=== PATIENT | male | born 1960 | race Caucasian/White ===

== ENCOUNTER → 2017-09-22 06:53 | Outpatient (CLI) | payer OTHER, SELFPAY ==
--- NOTE | 2017-09-22 10:05 | STRESSREP ---
Stress Test Report Date: 09/22/2017 Procedure: Exercise tolerance test/imaging study Indications: Chest pain Consent: Per the patient Procedure: The patient exercised on a Titus protocol for 4 minutes completing stage I and 1 minute of stage II achieving a peak heart rate of 137 bpm (85% predicted maximal heart rate) with a peak blood pressure 192/100 mmHg and a peak MET capacity of approximately 5-6 METs. The baseline ECG demonstrated normal sinus rhythm. The peak exercise ECG demonstrated somatic/motion artifact with no obvious ECG changes. There was a rare PVC during exercise and recovery. The functional capacity was considered decreased. The patient had no complaint of chest discomfort during exercise or recovery. The examination was discontinued secondary to dyspnea and fatigue. Impression: 1. Technically adequate (percent predicted maximal heart rate greater than 85%) exercise tolerance test 2. Peak exercise ECG with somatic/motion artifact with no obvious ECG changes 3. Rare PVC during exercise and recovery 4. Nuclear images pending Myocardial perfusion imaging study: Technique: The patient was injected with 14.8 mCi of technetium 99m Cardiolite and subsequently rest SPECT Cardiolite nuclear imaging was obtained in the horizontal long, vertical long, and short axis views. The patient exercised on a Titus protocol for 4 minutes completing stage I and 1 minute of stage II achieving a peak heart rate of 137 bpm (85% predicted maximal heart rate) with a peak blood pressure 192/100 mmHg and a peak MET capacity of approximately 5-6 METs. The patient was injected with 44.5 mCi of technetium 99m Cardiolite and subsequently stress SPECT Cardiolite nuclear imaging was obtained in the horizontal long, vertical long, and short axis views. A gated Cardiolite study at peak stress was obtained. Interpretation: Rest and stress SPECT cardiac nuclear imaging status post realignment, normalization, and attenuation correction, demonstrates a small area of subtle diminished tracer uptake near the apical segments without significant change between rest and stress. There is end systolic thickening and brightening. The gated Cardiolite study demonstrates myocardial thickening and inward wall motion. The reported LVEF is 73%. Impression: 1. Rest and stress SPECT cardio light nuclear imaging demonstrates myocardial perfusion changes appearing compatible with physiologic apical thinning with no myocardial perfusion changes consider diagnostic for associated stress-induced myocardial ischemia or previous myocardial injury/infarction. 2. The gated Cardiolite study reports an LVEF of 73%. This note was generated with ITeam software. Every effort was made to ensure accuracy, however, computerized supplier quality engineer mistakes may persist.
--- NOTE | 2017-09-22 10:10 | STRESSREP_ITS ---
Stress Test Report Date: 09/22/2017 Procedure: Exercise tolerance test/imaging study Indications: Chest pain Consent: Per the patient Procedure: The patient exercised on a Titus protocol for 4 minutes completing stage I and 1 minute of stage II achieving a peak heart rate of 137 bpm (85% predicted maximal heart rate) with a peak blood pressure 192/100 mmHg and a peak MET capacity of approximately 5-6 METs. The baseline ECG demonstrated normal sinus rhythm. The peak exercise ECG demonstrated somatic/motion artifact with no obvious ECG changes. There was a rare PVC during exercise and recovery. The functional capacity was considered decreased. The patient had no complaint of chest discomfort during exercise or recovery. The examination was discontinued secondary to dyspnea and fatigue. Impression: 1. Technically adequate (percent predicted maximal heart rate greater than 85% ) exercise tolerance test 2. Peak exercise ECG with somatic/motion artifact with no obvious ECG changes 3. Rare PVC during exercise and recovery 4. Nuclear images pending Myocardial perfusion imaging study: Technique: The patient was injected with 14.8 mCi of technetium 99m Cardiolite and subsequently rest SPECT Cardiolite nuclear imaging was obtained in the horizontal long, vertical long, and short axis views. The patient exercised on a Titus protocol for 4 minutes completing stage I and 1 minute of stage II achieving a peak heart rate of 137 bpm (85% predicted maximal heart rate) with a peak blood pressure 192/100 mmHg and a peak MET capacity of approximately 5-6 METs. The patient was injected with 44.5 mCi of technetium 99m Cardiolite and subsequently stress SPECT Cardiolite nuclear imaging was obtained in the horizontal long, vertical long, and short axis views. A gated Cardiolite study at peak stress was obtained. Interpretation: Rest and stress SPECT cardiac nuclear imaging status post realignment, normalization, and attenuation correction, demonstrates a small area of subtle diminished tracer uptake near the apical segments without significant change between rest and stress. There is end systolic thickening and brightening. The gated Cardiolite study demonstrates myocardial thickening and inward wall motion. The reported LVEF is 73%. Impression: 1. Rest and stress SPECT cardio light nuclear imaging demonstrates myocardial perfusion changes appearing compatible with physiologic apical thinning with no myocardial perfusion changes consider diagnostic for associated stress-induced myocardial ischemia or previous myocardial injury/infarction. 2. The gated Cardiolite study reports an LVEF of 73%. This note was generated with VideoLens software. Every effort was made to ensure accuracy, however, computerized drying room supervisor mistakes may persist.
== END ==
PROVIDERS: Family Provider Family Medicine; PCP Family Medicine; Visit Provider Family Medicine
DX: R07.9 Chest pain, unspecified (principal)
CPT/HCPCS: 78452; 93017; A9500; A4216

== ENCOUNTER 2021-05-30 19:41 | Emergency (ER) | payer OTHER, SELFPAY ==
[2021-05-30] VITALS (9 sets, daily range): BP systolic 128–191; BP diastolic 78–124; PULSE 93–108; RESP 14–20; TEMP 36.8; O2SAT 93–98; BMI 38.8
--- NOTE | 2021-05-30 21:38 | EDS_ITS ---
HPI History of Present Illness Chief Complaint: Foreign Body Informant: patient Narrative Narrative: 61-year-old male presenting to the emergency department with chief complaint of chicken stuck in his esophagus. Patient states he has had this before but was able to dislodge it. He was eating the chicken and around 1900 hrs. and states that because of his dentures tried to swallow too big of a piece. He has never had endoscopy before. He is not willing to try swallowing Coke. [facility] Medical History Anxiety High cholesterol Hypertension Hypothyroidism Home Medications pantoprazole [Protonix] 40 mg PO DAILY #30 tab 05/30/21 [Rx Last Taken Unknown] Allergy/AdvReac Type Severity Reaction Status Date / Time meperidine [From Demerol] Allergy Nausea/Vom/ Verified 05/30/21 19:42 Diarrhea Social History (Updated 05/30/21 @ 21:[address] Arya Wilson DO) Smoking Status: Former smoker substance use type: does not use ROS ROS ED Constitutional Constitutional ED: Denies chills or weight loss Eyes Eyes: Denies change in vision or diplopia ENT ENT ED: Denies ear pain, rhinorrhea or sore throat Cardiovascular Cardiovascular: Denies chest pain, orthopnea, palpitations or racing heartbeat Respiratory/Chest Respiratory/Chest: Denies cough, dyspnea or orthopnea Gastrointestinal Gastrointestinal: Reports other Details: See history of present illness ; Denies abdominal pain, diarrhea, nausea or vomiting Genitourinary Genitourinary ED: Denies dysuria, hematuria or urinary frequency Musculoskeletal Musculoskeletal: Denies arthralgias or myalgias Integumentary Denies abscess or rash Neurologic Neurologic: Denies headache(s) or weakness Psychiatric Psychiatric: Denies anxiety, depression, suicidal ideation or suicidal thoughts Endocrine Endocrinology: Denies polydipsia, polyphagia or polyuria Allergic/Immunologic Allergic/Immunologic ED: Denies mouth swelling, tongue swelling or urticaria EXAM Physical Exam Narrative Exam Narrative: Patient sitting on the bed. He occasionally needs to spit his secretions Const Vital Signs: 05/30/21 19:43 05/30/21 20:00 05/30/21 22:13 Temperature 98.2 F Temperature Source Temporal Pulse Rate 106 H 103 H Pulse Rate [1 (Initial Baseline)] Pulse Rate [2] Pulse Rate [3] Respiratory Rate 14 16 Respiratory Rate [1 (Initial Baseline)] Respiratory Rate [2] Respiratory Rate [3] Respiratory Effort Normal Respiratory Pattern Normal Blood Pressure 191/96 H 163/98 H Blood Pressure [1 (Initial Baseline)] Blood Pressure [2] Blood Pressure [3] Blood Pressure Mean 127 119 Pulse Ox 96 97 Oxygen Delivery Method Room Air Room Air Oxygen Flow Rate (L/min) 05/30/21 22:19 05/30/21 22:20 Temperature Temperature Source Pulse Rate 106 H Pulse Rate [1 (Initial Baseline)] 105 H Pulse Rate [2] 93 Pulse Rate [3] 102 H Respiratory Rate 15 Respiratory Rate [1 (Initial Baseline)] 18 Respiratory Rate [2] 14 Respiratory Rate [3] 17 Respiratory Effort Respiratory Pattern Blood Pressure 158/99 H Blood Pressure [1 (Initial Baseline)] 172/98 H Blood Pressure [2] 128/81 H Blood Pressure [3] 146/84 H Blood Pressure Mean Pulse Ox 98 Oxygen Delivery Method Room Air Oxygen Flow Rate (L/min) 98 Positive well nourished and well developed General Appearance ED: well developed HEENT Reports normocephalic, head/scalp atraumatic and moist mucous membranes Eyes PERRL and EOMs intact bilaterally Neck no lymphadenopathy, supple and no JVD Resp normal respiratory effort and clear to auscultation bilaterally Cardio regular rate, regular rhythm and no murmurs GI normal to inspection, nondistended, normoactive bowel sounds and non-tender Palpation: soft Back/Spine no CVA tenderness and normal ROM Extremity normal to inspection General Extremety ED: Negative for edema General Extremity: Negative for edema Neuro oriented x3 and CN's II-XII intact bilaterally Sensorium / Orientation: alert Motor Exam: strength 5/5 throughout Psych mental status grossly normal Mood & Affect: Negative for depressed or tearful Skin no rashes or lesions noted and no wounds MDM MDM MDM Narrative Medical decision making narrative: Unable to swallow water will not try to swallow Coke. I spoke with on-call surgeon Dr. Ortiz because we have no GI coverage tonight. He will be in to evaluate the patient. After evaluation the plan is to do endoscopy here in the emergency department. I will be providing sedation. After discussing sedation with the patient we are going to proceed with the use of propofol. Patient is provided informed consent for this. Patient received 100 mg bolus followed by 50 mg boluses to achieve adequate sedation. A total of 250 mg was used to keep the patient sedated and comfortable during the exam. Total sedation time of 9 minutes Patient did not suffer from any hypoxia hypotension or apnea. He was allowed to recover without incident. Plan is to discharge the patient home. He will follow up with Dr. Ortiz to plan a second endoscopy for biopsies. In the interim we are going to place him on Protonix. Discharge Plan Triage Chief Complaint: Foreign Body ED Provider: Arya Wilson Dx/Rx/DC Orders Clinical Impression: Esophageal obstruction due to food impaction Instructions: ED Esophageal Foreign Body, Resolved Prescriptions: New pantoprazole [Protonix] 40 mg tablet,delayed release (DR/EC) 40 mg PO DAILY Qty: 30 RF: 0 Primary Care Provider: Ignacio Walker Referrals: Kolton Ortiz MD [STAFF PHYSICIAN] - As soon as possible (call to arrange follow up) Ignacio Walker MD [Primary Care Provider] - Disposition Disposition: Home, Self Care
--- NOTE | 2021-05-30 21:54 | CON.PCM.SX_ITS ---
Assessment & Plan Assessment/Plan (1) Esophageal obstruction due to food impaction: PLAN: This is a 61-year-old edentulous male with impacted chicken in his esophagus. Not able to tolerate liquids at this point but otherwise in no acute distress. We will plan for bedside upper endoscopy to remove food impaction. Patient and emergency medicine both advised in this plan. If scope is unremarkable and patient is able to tolerate liquids after the scope, he could be eligible for dismissal from the ER. HPI Consult Data Date of Consult: 05/30/21 HPI Narrative HPI Narrative: BHUPINDER PALUMBO, is a 61 M who presents to [facility] ER with complaints of impacted food foreign body. He states this is happened some half dozen times, but previously has always been able to move the food with lots of liquids. He states that he became engrossed in a television episode and did not realize how big a piece of chicken he was eating earlier before it was already on its way down his esophagus and became lodged. He has tried sips of both water and soda but neither are going down now. He states that he feels pressure in his throat but previously was feeling it in a substernal location. He blames his worn-out dentures for his inability to chew food properly. He has never had an upper scope to assess for possible esophageal stricture. [facility] Medical History Anxiety High cholesterol Hypertension Hypothyroidism Allergy/AdvReac Type Severity Reaction Status Date / Time meperidine [From Demerol] Allergy Nausea/Vom/ Verified 05/30/21 19:42 Diarrhea Social History (Updated 05/30/21 @ 21:[address] Arya Wilson, ) Smoking Status: Former smoker substance use type: does not use Physical Exam Const alert, oriented x3 and no apparent distress General Appearance: cooperative Charges/Coding Visit Charges Inpatient E&M: 93462 Init Hosp L2
[2021-05-30] MEDS: Propofol 200 MG/20 ML Vial IV BOLUS (22:18)
--- NOTE | 2021-05-30 22:33 | PRO.PCM_ITS ---
Assessment & Plan Assessment/Plan (1) Esophageal obstruction due to food impaction: Procedure Report Date of Procedure: 05/30/21 Procedure: Esophagogastroduodenoscopy Indication: Food impaction of esophagus Procedure in detail: After receiving written consent and conducting a formal ti meout, the patient was provided conscious sedation by emergency medicine with propofol. He was actively monitored during this time. Procedure was then begun with insertion of a standard adult EGD scope. The scope passed easily down to the mid esophagus where there was a piece of chicken that moved antegrade into the stomach once insufflation from the scope was brought near. As the chicken moved out of its lodged position there was evidence of mild abrasion of the mucosa with slight oozing of the esophagus wall. When rinsed with water from the scope there was no further bleeding. The scope was advanced to the GE junction where there was a tongue of salmon?colored mucosa concerning for possible metaplastic change. No biopsy was undertaken given the emergent nature of the scope. The scope was advanced then into the stomach and retroflexion was undertaken. The stomach appeared normal with some additional foodstuff and water in the gastric body. On retroflexion there did not appear to be any further evidence of trauma. Therefore the insufflation was evacuated from the stomach and the scope was withdrawn. Patient tolerated this procedure without apparent complication. Patient will be given a p.o. challenge and prescribed Protonix by emergency medicine. I have requested outpatient follow-up to schedule a formal EGD with biopsy based on findings of the scope. Procedures Digestive [id number]-49xxx: [id number] Esophagoscopy flex remove fb
--- NOTE | 2021-05-30 23:24 | ED.RN ---
Patient talking and walking around without difficulty.
== END 2021-05-30 23:25 | disposition home or self-care (01) ==
PROVIDERS: Surgery; Emergency Provider Emergency Medicine; PCP Family Medicine
PROC: 0DJ08ZZ Inspection of Upper Intestinal Tract, Via Natural or Artificial Opening Endoscopic (ICD-10-PCS; CPT 43235; principal; 2021-05-30 22:30)
DX: T18.128A Food in esophagus causing other injury, initial encounter (principal); K22.2 Esophageal obstruction; F41.9 Anxiety disorder, unspecified; Z87.891 Personal history of nicotine dependence; X58.XXXA Exposure to other specified factors, initial encounter
CPT/HCPCS: 43215; 96374; 99283; J7030; A4216

== ENCOUNTER 2021-09-10 11:10 | Outpatient (RCR) | payer OTHER, SELFPAY | END 2021-09-21 23:59 | LOC: LABSPEC 11:10 | PROVIDERS: Referring Provider Family Medicine; Visit Provider Family Medicine | DX: U07.1 COVID-19 (principal) | CPT/HCPCS: 87635; U0003; U0005 ==

== ENCOUNTER 2021-09-21 13:44 | Inpatient (IN) | payer OTHER, SELFPAY ==
[2021-09-21] VITALS (15 sets, daily range): BP systolic 149–167; BP diastolic 74–83; PULSE 82–98; RESP 16–22; TEMP 37.1–37.4; O2SAT 85–95; BMI 37.0; BMI 35.4
--- NOTE | 2021-09-21 14:16 | CT_ITS ---
STUDY: CTA CHEST REASON FOR EXAM: Male, 61 years old. Hypoxia. Respiratory failure. Shortness of breath. COVID positive for 2 days. Hypertension. RADIATION DOSAGE (If Supplied By Facility): CTDIvol = ( 17.41 ) mGy, DLP = ( 541.73 ) mGycm TECHNIQUE: The examination was performed with the intravenous administration of IV 100mL Isovue-370. Post-processing of the angiographic images was performed, with multiplanar reformation and 3D reconstruction. Individualized dose optimization techniques were used for this CT. COMPARISON: Chest, 09/21/2021. FINDINGS: Normal enhancement of the main pulmonary artery and right and left pulmonary arteries. Normal enhancement of the bilateral peripheral pulmonary arteries. There is no demonstrated pulmonary embolism. Mild atherosclerotic tortuosity of the thoracic aorta. 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 There is no demonstrated aortic dissection. Normal heart and pericardium. Minimal coronary artery calcifications. Nonspecific subcentimeter mediastinal lymphadenopathy. Annual hilar lymphadenopathy. Normal visualized trachea and bronchi. The lungs are well expanded. Diffuse groundglass pulmonary infiltrates throughout both lungs most marked in the upper lobes. There is no focal mass or consolidation. Normal pleura. Normal chest wall structures. There are degenerative changes of thoracic spine. Small hiatal hernia. The upper abdomen is otherwise grossly normal. CT/CTA Chest W/WO Contrast IMPRESSION: 1. No evidence of pulmonary embolus. 2. No aortic dissection or aneurysm. 3. Groundglass pulmonary infiltrates suggestive of COVID pneumonia. 4. Degenerative changes of the thoracic spine. 5. Hiatal hernia. Electronically Signed: Daniel Brasher DO at 16:44 EST Reading Location ID and State: [id number] Tel [phone], Service support ,
--- NOTE | 2021-09-21 14:20 | EDS_ITS ---
HPI History of Present Illness Chief Complaint: Shortness of Breath Narrative Narrative: 61-year-old male presenting with dyspnea. He estimates that he has been sick with COVID-19 for about 12 days. He tested positive on 09/10/2021. Patient presents with progressive shortness of breath and states he just feels like he cannot catch his breath. Patient is a non-smoker. He states he has no history of cardiopulmonary disease. Patient states that he was not vaccinated for COVID-19. Patient does not complain of any chest pain. He currently has no fevers. He states that he is not eating because he just does not feel like it. He does not express to me that he has nausea or vomiting. [facility] Medical History Anxiety High cholesterol Hypertension Hypothyroidism Home Medications buspirone 5 mg PO TID 05/30/21 [History Last Taken Unknown] hydrochlorothiazide 25 mg PO DAILY 09/21/21 [History Last Taken Unknown] levothyroxine 137 mcg PO DAILY 09/21/21 [History Last Taken Unknown] losartan 25 mg PO DAILY 09/21/21 [History Last Taken Unknown] Allergy/AdvReac Type Severity Reaction Status Date / Time meperidine [From Demerol] Allergy Nausea/Vom/ Verified 09/21/21 13:45 Diarrhea Social History Smoking Status: Former smoker substance use type: does not use ROS ROS ED Constitutional Constitutional ED: Denies chills or fever(s) Eyes Eyes: Denies blurry vision or diplopia ENT ENT ED: Denies rhinorrhea or sore throat Cardiovascular Cardiovascular: Denies chest pain or palpitations Respiratory/Chest Respiratory/Chest: Reports cough and dyspnea Gastrointestinal Gastrointestinal: Denies abdominal pain, nausea or vomiting Genitourinary Genitourinary ED: Denies dysuria or hematuria Musculoskeletal Musculoskeletal: Denies arthralgias or myalgias Integumentary Denies abscess or rash Neurologic Neurologic: Denies headache(s), paresthesias or weakness EXAM Physical Exam Const Vital Signs: 09/21/21 13:45 09/21/21 13:50 09/21/21 13:51 Temperature 99.3 F H Temperature Source Oral Pulse Rate 91 Respiratory Rate Respiratory Effort Short of Breath Respiratory Depth Shallow Respiratory Pattern Normal Blood Pressure 165/76 H Blood Pressure Mean 105 Pulse Ox 85 95 Oxygen Delivery Method Room Air Nasal Cannula Nasal Cannula Oxygen Flow Rate (L/min) 4 4 09/21/21 14:00 09/21/21 14:15 09/21/21 14:30 Temperature Temperature Source Pulse Rate 86 89 85 Respiratory Rate 20 H 16 20 H Respiratory Effort Respiratory Depth Respiratory Pattern Blood Pressure 164/74 H 154/74 H 156/77 H Blood Pressure Mean 104 100 103 Pulse Ox 94 92 91 Oxygen Delivery Method Oxygen Flow Rate (L/min) 4 4 4 09/21/21 14:45 09/21/21 15:00 09/21/21 15:15 Temperature Temperature Source Pulse Rate 82 84 91 Respiratory Rate 21 H 22 H 22 H Respiratory Effort Respiratory Depth Respiratory Pattern Blood Pressure 163/78 H 160/82 H 167/83 H Blood Pressure Mean 106 108 111 Pulse Ox 92 94 94 Oxygen Delivery Method Oxygen Flow Rate (L/min) 4 4 4 09/21/21 15:30 09/21/21 17:00 Temperature Temperature Source Pulse Rate 84 84 Respiratory Rate 18 20 H Respiratory Effort Respiratory Depth Respiratory Pattern Blood Pressure 150/77 H 153/79 H Blood Pressure Mean 101 103 Pulse Ox 93 Oxygen Delivery Method Oxygen Flow Rate (L/min) 4 Positive well nourished and obese General Appearance ED: NAD; Negative for pallor Nutritional Appearance: obese HEENT Reports moist mucous membranes atraumatic Eyes PERRL and EOMs intact bilaterally Neck no lymphadenopathy and supple Resp normal respiratory effort and clear to auscultation bilaterally Cardio regular rate and regular rhythm GI non-tender and non-distended Auscultation: normoactive bowel sounds Palpation: soft Extremity normal to inspection General Extremety ED: Negative for edema or tenderness General Extremity: Negative for edema Neuro oriented x3, CN's II-XII intact bilaterally and no sensory deficits noted Sensorium / Orientation: alert Motor Exam: strength 5/5 throughout and general weakness Psych mental status grossly normal Thought Process: normal thought process Skin General Skin Exam: Negative for jaundice or pallor Lesions: no lesions Rashes: no rashes MDM MDM MDM Narrative Medical decision making narrative: 51-year-old male presenting with shortness of breath and weakness. He also states having difficulty eating but is not having nausea or vomiting. Patient is approximately day 12 of Covid symptoms. He has a positive test in the [facility] system. Due to his hypoxic respiratory failure requiring 4 L to maintain his O2 saturations I did do blood work and an EKG. His EKG on my interpretation shows a normal sinus rhythm with a ventricular rate of 85 bpm without sign of acute ischemic changes or dysrhythmia. Chest x-ray my interpretation is bilateral pulmonary infiltrates. CBC is unremarkable. CMP shows a slightly low sodium 132, potassium of 2.8. Creatinine is normal at 1.04. AST 112, ALT 122, alk phosphatase 211. Bilirubin 1. I did obtain a CTA of the chest to rule out PE and this does show groundglass opacities consistent with COVID-19 pneumonitis as well as a hiatal hernia. Patient was given dexamethasone 6 mg IV. He was given 500 cc of IV fluids. 40 mEq of potassium was repleted orally. I obtained a magnesium level which is normal. Patient will be needing to be admitted to the hospital due to hypoxic respiratory failure and can have more repletion of his potassium upstairs. Impression: 1. COVID-19 pneumonitis 2. Hypoxic respiratory failure 3. Hypokalemia Lab Data Attestation: I reviewed the patient's lab results. Labs: Laboratory Results - last 24 hr 09/21/21 09/21/21 09/21/21 14:25 14:25 15:30 WBC 8.9 RBC 4.52 L Hgb 13.5 Hct 40.3 MCV 89.2 MCH 29.9 MCHC 33.5 RDW Std Deviation 43.2 RDW Coeff of Judy 13.2 Plt Count 294 MPV 9.7 Immature Gran % (Auto) 0.800 Neut % (Auto) 77.7 H Lymph % (Auto) 14.7 L [place] % (Auto) 6.5 Eos % (Auto) 0.1 Baso % (Auto) 0.2 Absolute Neuts (auto) 6.9 Absolute Lymphs (auto) 1.30 Nucleated RBC % 0 Reactive Lymphocytes RARE Sodium 132 L Potassium 2.8 L Chloride 96 L Carbon Dioxide 27.0 Anion Gap 9 BUN 15 Creatinine 1.04 Estim Creat Clear Calc 78.44 Est GFR (MDRD) Af Amer 93 Est GFR (MDRD) Non-Af 77 BUN/Creatinine Ratio 14.4 Glucose 107 H Calcium 8.6 Magnesium 2.5 Total Bilirubin 1.00 AST 112 H ALT 122 H Alkaline Phosphatase 211 H Troponin I High Sens 9 Total Protein 7.7 Albumin 2.7 L Globulin 5.0 H Albumin/Globulin Ratio 0.5 L Radiography Diagnostic Testing: Clinical Impression(s) from Imaging Studies Chest CTA 09/21/21 14:16 IMPRESSION: 1. No evidence of pulmonary embolus. 2. No aortic dissection or aneurysm. 3. Groundglass pulmonary infiltrates suggestive of COVID pneumonia. 4. Degenerative changes of the thoracic spine. 5. Hiatal hernia. Electronically Signed: Daniel Brasher DO at 16:44 EST Reading Location ID and State: [facility] / [place] Tel [phone], Service support , Chest X-Ray 09/21/21 15:08 IMPRESSION: Mild degree of the bilateral patchy pulmonary infiltrates more prominent in the right infrahilar region. Electronically Signed: Yo Wright MD at 15:32 EST , Discharge Plan Triage Chief Complaint: Shortness of Breath ED Provider: Derek Green Dx/Rx/DC Orders Primary Care Provider: Care Physician,No Primary
--- NOTE | 2021-09-21 14:23 | EKG12_ITS ---
Test Reason : SOB Blood Pressure : / mmHG Vent. Rate : 085 BPM Atrial Rate : 085 BPM P-R Int : 184 ms QRS Dur : 100 ms QT Int : 370 ms P-R-T Axes : 029 027 033 degrees QTc Int : 440 ms Normal sinus rhythm Nonspecific ST abnormality Abnormal ECG Confirmed by TOMMY FLORES, SHERICE ([id number]), medical transcription editor MATT PURVIS ([id number]) on 09/22/2021 8:39:57 AM Referred By: PEDRO Confirmed By:SHERICE SANDERS MD
[2021-09-21 14:34] LABS: Absolute Neutrophil Count 6.9 X10^3/uL (2.0-7.7); Basophil# 0.02 X10^3/uL; Basophil% 0.2 % (0-1); Eosinophil# 0.01 X10^3/uL; Eosinophils% 0.1 % (0-5); Hematocrit 40.3 % (40-54); Hemoglobin 13.5 g/dL (13.0-16.5); Lymphocyte % 14.7 % (19-41); Mean Corp Hgb Conc 33.5 g/dL (32-36); Mean Corpuscular Hgb 29.9 pg (27.0-32.0); Mean Corpuscular Volume 89.2 fL (80-94); Mean Platelet Vol. 9.7 fl (6.2-12.0); Monocyte# 0.58 X10^3/uL; Monocyte% 6.5 % (0-10); NRBC Flagged by Analyzer 0 % (0-5); Neutrophil # 6.88 X10^3/uL (2.7-7.7); Neutrophil % 77.7 % (47-70); POSITIVE MORPHOLOGY YES; Platelet Count 294 K/mm3 (150-450); RBC Distribution Width CV 13.2 % (11.6-14.6); RBC Distribution Width SD 43.2 fl (35.1-43.9); Red Blood Count 4.52 M/mm3 (4.6-6.2); White Blood Count 8.9 K/mm3 (4.4-11.0)
[2021-09-21] MEDS: dexAMETHasone 10 MG/ML Vial 6 MG IV (14:34)
[2021-09-21 14:36] LABS: Differential Indicated SCAN CRITERIA MET
[2021-09-21 14:54] LABS: Reactive Lymphocyte RARE
--- NOTE | 2021-09-21 15:08 | RAD_ITS ---
STUDY: X-RAY CHEST REASON FOR EXAM: Male, 61 years old. Cough TECHNIQUE: Single AP portable view of the chest. COMPARISON: None. FINDINGS: EKG electrodes are seen. Mild degree of the patchy infiltrates in both lungs slightly worse in the right infrahilar region. Follow-up is recommended. There is no demonstrated pleural abnormality. There is mild cardiac enlargement. Normal mediastinum and ines. Normal visualized pulmonary arteries. There is atherosclerotic calcification of the aortic arch with tortuosity. Normal visualized thoracic spine. Normal visualized ribs, clavicles, and shoulders. There is no demonstrated abnormality of the visualized soft tissue structures of the upper abdomen. RAD/Chest 1 View (Portable) IMPRESSION: Mild degree of the bilateral patchy pulmonary infiltrates more prominent in the right infrahilar region. Electronically Signed: Yo Wright MD at 15:32 EST ,
[2021-09-21 15:23] LABS: ALB/GLOB Ratio 0.5 RATIO (0.9-2.4); AST(SGOT) 112 U/L (15-37); Alanine Aminotransfer ALT/SGPT 122 U/L (16-61); Albumin, Serum 2.7 g/dL (3.2-5.0); Alkaline Phosphatase 211 U/L (45-117); Anion Gap 9 (5-15); BUN 15 mg/dL (7-18); BUN/Creat Ratio 14.4 RATIO (10-20); Calcium,Total 8.6 mg/dL (8.5-10.1); Chloride 96 mmol/L (98-107); Creatinine, Serum 1.04 mg/dL (0.70-1.30); EST Glomerular Filtration Rate 77 mL/min (>60); Est Glom Filt Rate - Afr Amer 93 mL/min (>60); Estimated Creatinine Clearance 78.44 ml/min; Glucose 107 mg/dL (74-106); Potassium 2.8 mmol/L (3.5-5.1); Protein, Total 7.7 g/dL (6.4-8.2); Sodium Level 132 mmol/L (136-145); Troponin-I HS 9 pg/mL (3.0-78.0)
[2021-09-21] MEDS: Potassium Chloride Oral Tablet 20 MEQ 40 MEQ PO ×2 (17:33→23:47)
--- NOTE | 2021-09-21 17:46 | HP.PCM.HOS_ITS ---
HPI - General General Date of Admission: 09/21/21 Date of Service: 09/21/21 Chief Complaint: Shortness of breath ongoing for 12 days HPI Narrative BHUPINDER PALUMBO, is a 61 M who presents with the above. Patient is unvaccinated against COVID-19 infection. He had progressive shortness of breath, upper respiratory symptoms, subjective fever and chills that started 12 days ago. He however tested positive on 09/16/21. He lives alone. He was saturating 82% on room air. In the EMS, he was saturating 90% on 15 L nonrebreather mask. His vitals in the ED were stable except for slightly uncontrolled blood pressure. He was saturating 93% on 2 L of oxygen. His admitting blood work was significant for potassium of 2.8,sodium of 132. His LFTs were elevated. CTA of the chest showed no evidence of acute PE, showed groundglass opaci ties.Chest x-ray showed mild degree of bilateral patchy pulmonary infiltrates, more prominent in the right infrahilar region. [facility] Medical History Anxiety Former smoker High cholesterol Hypertension Hypothyroidism Home Medications buspirone 5 mg PO TID 05/30/21 [History Last Taken Unknown] cholecalciferol (vitamin D3) 50,000 unit PO CASTRO 09/21/21 [History Last Taken 09/13/21] hydrochlorothiazide 25 mg PO DAILY 09/21/21 [History Last Taken 09/21/21] levothyroxine 137 mcg PO DAILY 09/21/21 [History Last Taken 09/21/21] losartan 25 mg PO DAILY 09/21/21 [History Last Taken 09/21/21] Allergy/AdvReac Type Severity Reaction Status Date / Time meperidine [From Demerol] Allergy Nausea/Vom/ Verified 09/21/21 13:45 Diarrhea Family History (Updated 09/21/21 @ 20:[address] Dominga Bennett MD) Mother No problems noted. Surgical History (Updated 09/21/21 @ 18:38 by Sari Cross) History of cholecystectomy Social History (Updated 09/21/21 @ 20:[address] Dominga Bennett MD) housing: house Smoking Status: Former smoker alcohol intake: never substance use type: does not use ROS ROS Narrative Constitutional: Reports: Malaise, Weakness, Fatigue. Denies: Anorexia, Chills, Fever, Night Sweats, Weight Change Eyes: Denies: Blurred vision, Cataracts, Conjunctivae Inflammation, Pain, Redness, Vision Change HEENT: Denies: Difficulty Hearing, Difficulty Swallowing, Head Aches, Hearing Changes, Sinus Congestion, Sinus Drainage Cardiovascular: Denies: Chest Pain, Orthopnea, Palpitations Respiratory: Admits to cough, Shortness of breath at rest Gastrointestinal: Denies: Abdominal Pain, Nausea, Vomiting Genitourinary: Denies: Dysuria Musculoskeletal: Denies: Joint Pain, Joint stiffness, Joint swelling, Joint Tenderness Skin: Denies: Rash, Wounds Neurological: Denies: Numbness, Tingling, Focal weakness Vital Signs Vital Signs Vital Signs: 09/21/21 13:45 09/21/21 13:50 09/21/21 13:51 Temperature 99.3 F H Temperature Source Oral Pulse Rate 91 Respiratory Rate Respiratory Effort Short of Breath Respiratory Depth Shallow Respiratory Pattern Normal Blood Pressure 165/76 H Blood Pressure Mean 105 Pulse Ox 85 95 Oxygen Delivery Method Room Air Nasal Cannula Nasal Cannula Oxygen Flow Rate (L/min) 4 4 09/21/21 14:00 09/21/21 14:15 09/21/21 14:30 Temperature Temperature Source Pulse Rate 86 89 85 Respiratory Rate 20 H 16 20 H Respiratory Effort Respiratory Depth Respiratory Pattern Blood Pressure 164/74 H 154/74 H 156/77 H Blood Pressure Mean 104 100 103 Pulse Ox 94 92 91 Oxygen Delivery Method Oxygen Flow Rate (L/min) 4 4 4 09/21/21 14:45 09/21/21 15:00 09/21/21 15:15 Temperature Temperature Source Pulse Rate 82 84 91 Respiratory Rate 21 H 22 H 22 H Respiratory Effort Respiratory Depth Respiratory Pattern Blood Pressure 163/78 H 160/82 H 167/83 H Blood Pressure Mean 106 108 111 Pulse Ox 92 94 94 Oxygen Delivery Method Oxygen Flow Rate (L/min) 4 4 4 09/21/21 15:30 09/21/21 17:00 Temperature Temperature Source Pulse Rate 84 84 Respiratory Rate 18 20 H Respiratory Effort Respiratory Depth Respiratory Pattern Blood Pressure 150/77 H 153/79 H Blood Pressure Mean 101 103 Pulse Ox 93 Oxygen Delivery Method Oxygen Flow Rate (L/min) 4 Weight Weight: 120.6 kg Body Mass Index (BMI) 37.0 Physical Exam Narrative Physical exam: General: Alert, Oriented x3, Cooperative, No apparent distress, Well developed, on 4 L of oxygen HEENT: Atraumatic Oral: Moist Mucosa Neck: Supple Lungs: Diminished to auscultation Cardiovascular: HS I+II, regular, no murmurs Abdomen: Bowel Sounds Present, Soft, Non Tender Extremities: Bilateral leg edema +1 Results Lab / Micro Data Result Diagrams: 09/21/21 14:25 09/21/21 14:25 Labs: Laboratory Results - last 24 hr 09/21/21 14:25: WBC 8.9, RBC 4.52 L, Hgb 13.5, Hct 40.3, MCV 89.2, MCH 29.9, M CHC 33.5, RDW Std Deviation 43.2, RDW Coeff of Judy 13.2, Plt Count 294, MPV 9.7, Immature Gran % (Auto) 0.800, Neut % (Auto) 77.7 H, Lymph % (Auto) 14.7 L, [place] % (Auto) 6.5, Eos % (Auto) 0.1, Baso % (Auto) 0.2, Absolute Neuts (auto) 6.9, Absolute Lymphs (auto) 1.30, Nucleated RBC % 0, Reactive Lymphocytes RARE 09/21/21 14:25: Sodium 132 L, Potassium 2.8 L, Chloride 96 L, Carbon Dioxide 27.0, Anion Gap 9, BUN 15, Creatinine 1.04, Estim Creat Clear Calc 78.44, Est GFR (MDRD) Af Amer 93, Est GFR (MDRD) Non-Af 77, BUN/Creatinine Ratio 14.4, Glucose 107 H, Calcium 8.6, Total Bilirubin 1.00, AST 112 H, ALT 122 H, Alkaline Phosphatase 211 H, Troponin I High Sens 9, Total Protein 7.7, Albumin 2.7 L, Globulin 5.0 H, Albumin/Globulin Ratio 0.5 L Radiology Impression Chest CTA 09/21/21 14:16 IMPRESSION: 1. No evidence of pulmonary embolus. 2. No aortic dissection or aneurysm. 3. Groundglass pulmonary infiltrates suggestive of COVID pneumonia. 4. Degenerative changes of the thoracic spine. 5. Hiatal hernia. Electronically Signed: Daniel Brasher DO at 16:44 EST Reading Location ID and State: [address] [place] [address] Tel [phone], Service support , Chest X-Ray 09/21/21 15:08 IMPRESSION: Mild degree of the bilateral patchy pulmonary infiltrates more prominent in the right infrahilar region. Electronically Signed: Yo Wright MD at 15:32 EST , Assessment & Plan Assessment/Plan (1) Acute respiratory failure with hypoxia: (2) Pneumonia due to COVID-19 virus: (3) Hyponatremia: (4) Hypokalemia: PLAN: 1. Acute hypoxic respiratory failure secondary to acute COVID-19 pneumonia Patient is unvaccinated; currently on 4 L of oxygen Chest x-ray and CT of the chest showed bilateral infiltrates; no PE seen Started on dexamethasone; will continue same Out of the window for remdesivir; presented on day 12 of symptoms Continue with breathing treatments, Encourage use of incentive spirometer. Wean off oxygen for SPO2 more than 94% 2. Hypokalemia/hyponatremia secondary to hydrochlorothiazide use Hold hydrochlorothiazide, replace potassium Repeat BMP in a.m. 3. Hypertension, slightly uncontrolled, continue on losartan with hydralazine as needed 4. Rest of his chronic medical conditions including hypothyroidism, anxiety disorder -stable Continue levothyroxine, Buspar 5. DVT PPx- Lovenox I discussed and explained in details the various types of CODE STATUS-full code, DNR CCA, DNR CC. Patient chose to be full code and wants everything done to keep him alive. Time spent discussing CODE STATUS 16 minutes Charges/Coding Visit Charges Inpatient E&M: 87077 Init Hosp L3 Multi Select Codes Hospitalists' Procedures Procedures: 54236 Advncd Care Plan 30 Min
--- NOTE | 2021-09-21 17:49 | NURSING ---
MED SURG COVID 19, HYPOXIC RESP FAILURE JOSE
[2021-09-21 18:01] LABS: Magnesium 2.5 mg/dL (1.6-2.6)
--- NOTE | 2021-09-21 18:20 | CASEMGMT ---
MOHAMUD CM to room to meet with patient for initial transition planning/care coordination assessment. MOHAMUD ATKINS introduced self and role at [facility]. Patient voices understanding and consents to assessment at this time. No visitors at bedside. Patient is alert and oriented, sitting up on ER cart with 4L O2 in no apparent distress and answers all questions appropriately. Care providers, pharmacy, and demographics verified/updated at this time. Admitting Dx: COVID-19, hypoxic respiratory failure PCP: Ignacio Walker Specialists: Denies Preferred Pharmacy: [facility] Insurance: [employer] Prescription Benefit: yes Living Will/HPOA: Patient denies having living will or HPOA. LNOK: Brother Renaldo Patel Living Arrangements: Patient lives alone in two story duplex house with 2 steps to enter the home, no handrail present. Patient states independent with ADLs prior to hospitalization. 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 Smoking/ETOH: Former smoker (quit 40 years ago), denies ETOH use Transportation: Patient drives self and denies transportation concerns. DME/HHC/SNF: Patient denies having any DME in home. Patient does not have home oxygen and denies preference for DME company if home oxygen were to be needed at time of discharge. Denies previous HHC or SNF stays. Patient had onset of COVID-like symptoms 12 days ago. Tested positive for COVID at [facility] on 09/10/21. Patient reports family/friends available to bring necessary groceries/medications during quarantine period. Patient has no concerns with going home at time of discharge. CM to follow for any discharge planning/needs. Patient voices no concerns/needs at this time. Advised patient to ask for CM if any questions/concerns/needs arise. Voices understanding. Plan: home
[2021-09-21] MEDS: busPIRone 5 MG Tablet PO (21:30)
[2021-09-21] MEDS: Enoxaparin 30 MG/0.3 ML Syringe SC (21:33)
[2021-09-21] MEDS: Potassium Chloride 10mEq/100mL 10 MEQ/100 ML IV.SOLN. 100 MEQ IV BOLUS ×2 (21:36→23:50)
[2021-09-21 21:44] LABS: Anion Gap 7 (5-15); BUN 13 mg/dL (7-18); BUN/Creat Ratio 12.9 RATIO (10-20); Calcium,Total 8.7 mg/dL (8.5-10.1); Chloride 100 mmol/L (98-107); Creatinine, Serum 1.01 mg/dL (0.70-1.30); EST Glomerular Filtration Rate 79 mL/min (>60); Est Glom Filt Rate - Afr Amer 96 mL/min (>60); Estimated Creatinine Clearance 80.77 ml/min; Glucose 151 mg/dL (74-106); Potassium 2.9 mmol/L (3.5-5.1); Sodium Level 132 mmol/L (136-145)
[2021-09-21] MEDS: Calcium Carbonate 500 MG Tablet PO (21:57)
--- NOTE | 2021-09-21 23:54 | PCS.PANDOC ---
PANDEMIC DOCUMENTATION INITIATED: Date: 09/21/21 Time: 2100
[2021-09-22] VITALS (9 sets, daily range): BP systolic 140–145; BP diastolic 71–87; PULSE 62–83; RESP 16–20; TEMP 36.1–36.6; O2SAT 91–94
[2021-09-22] MEDS: busPIRone 5 MG Tablet PO ×3 (06:36→22:41)
[2021-09-22 07:13] LABS: Hematocrit 38.2 % (40-54); Hemoglobin 12.9 g/dL (13.0-16.5); Mean Corp Hgb Conc 33.8 g/dL (32-36); Mean Corpuscular Hgb 29.8 pg (27.0-32.0); Mean Corpuscular Volume 88.2 fL (80-94); Mean Platelet Vol. 9.6 fl (6.2-12.0); POSITIVE MORPHOLOGY YES; Platelet Count 337 K/mm3 (150-450); RBC Distribution Width CV 12.9 % (11.6-14.6); Red Blood Count 4.33 M/mm3 (4.6-6.2); White Blood Count 6.8 K/mm3 (4.4-11.0)
[2021-09-22 07:18] LABS: Differential Indicated MANUAL DIFF
[2021-09-22 07:45] LABS: ALB/GLOB Ratio 0.5 RATIO (0.9-2.4); AST(SGOT) 85 U/L (15-37); Alanine Aminotransfer ALT/SGPT 112 U/L (16-61); Albumin, Serum 2.5 g/dL (3.2-5.0); Alkaline Phosphatase 200 U/L (45-117); Anion Gap 6 (5-15); BUN 14 mg/dL (7-18); BUN/Creat Ratio 15.9 RATIO (10-20); Calcium,Total 8.8 mg/dL (8.5-10.1); Chloride 102 mmol/L (98-107); Creatinine, Serum 0.88 mg/dL (0.70-1.30); EST Glomerular Filtration Rate 93 mL/min (>60); Est Glom Filt Rate - Afr Amer 112 mL/min (>60); Globulin 4.7 g/dL (2.2-4.2); Glucose 153 mg/dL (74-106); Magnesium 2.6 mg/dL (1.6-2.6); Potassium 3.4 mmol/L (3.5-5.1); Protein, Total 7.2 g/dL (6.4-8.2); Sodium Level 134 mmol/L (136-145)
[2021-09-22 08:44] LABS: Lymphocyte 11 % (19-41); Monocyte 8 % (0-10); Neutrophil-Band 2 % (0-5); Neutrophil-Segmented 79 % (47-70); Total Cells Counted 100 (MANUAL DIFF)
[2021-09-22 08:48] LABS: Absolute Lymphocyte Count 0.75 X10^3/uL (0.83-4.51); Absolute Neutrophil Count 5.5 X10^3/uL (2.0-7.7)
[2021-09-22] MEDS: Losartan Potassium 25 MG Tablet PO (10:46)
[2021-09-22] MEDS: 0.9% Saline Lock 10 ML Syringe IV (10:46)
[2021-09-22] MEDS: Enoxaparin 30 MG/0.3 ML Syringe SC ×2 (10:46→22:41)
[2021-09-22] MEDS: dexAMETHasone 10 MG/ML Vial 6 MG IV (10:47)
[2021-09-22] MEDS: Levothyroxine 137 MCG Tablet PO (10:47)
--- NOTE | 2021-09-22 15:09 | CASEMGMT ---
Social Work SW met w/pt in room regarding referral for coping with new diagnosis. Upon reviewing the chart, it seems COVID is the new diagnosis. SW met w/pt in room, offered support. Pt states is feeling much better today, compared to yesterday. Pt states was sick since last Tuesday. Yesterday he started feeling worse so his brother called the squad. SW did ask pt about completing POA paperwork, as the only family member he has listed is his brother Renaldo. Pt agreeable to completing the healthcare POA form and did put his brother Renaldo down as POA. Pt declined to complete the LW at this time. Since pt has COVID, originals left in room. SW asked pt when feeling better to give a copy to his PCP office and to his brother. Pt states understanding. SW then spoke w/pt about discharge, pt is hoping to go home tomorrow. However, pt states he does not want to go home with oxygen. Pt then states if he needs to exercise will go shovel snow. SW encouraged pt to take it easy when he goes home. Pt states understanding. SW remains available for any additional social service needs. MARCELA Barajas
--- NOTE | 2021-09-22 17:34 | PN.HOSP_ITS ---
Subjective Subjective Patient was seen and examined today, he has no complaints of any shortness of breath at rest, he has no complaints of any chest pain. Patient requires 3 L of oxygen to maintain his pulse ox. Patient is currently on IV dexamethasone for COVID-19, patient stated that he did not get the vaccine for COVID-19 due to buddhist exemption. Objective Data Objective Data Vital Signs: Vital Signs Temp Pulse Resp BP Pulse Ox 97.8 F 83 18 145/87 H 94 09/22/21 14:38 09/22/21 14:38 09/22/21 14:38 09/22/21 14:38 09/22/21 14:38 Oxygen Flow Rate (L/min) 3 Oxygen Delivery Method Nasal Cannula Weight: 115.2 kg Body Mass Index (BMI) 35.4 Intake & Output: Intake and Output for Last 24 Hours 09/20/21 09/21/21 09/22/21 23:59 23:59 23:59 Intake Total 600 / 600 100 / 100 Output Total 275 / 275 Balance 325 / 325 100 / 100 Medical Nutrition Assessment Dietitian: Malnutrition Criteria Met Start: 09/22/21 1 6:29 Freq: Status: Active Protocol: Document 09/22/21 16:30 RMA (Rec: 09/22/21 16:31 RMA [id number]) Nutrition Malnutrition Evidence of Malnutrition Exists Yes Malnutrition (severe): Acute Illness/Injury Evidenced By Suboptimal Energy Intake ( Severe),Weight Loss (Severe) Clinical Problem Acute Disease or Injury Related Malnutrition Etiology Severe protein-calorie malnutrition in the context of acute illness related to inadequate oral intake Signs/Symptoms as evidenced by ~6% wt loss in less than 1 month and PO meeting less than 50% estimated nutrition needs Status Active Problem Recommendation Dietitian Recommendations/Changes Continue cardiac diet as ordered. Will add 240ml ensure enlive BID with breakfast and dinner meals. Adjust ONS as needed to optimize oral intake and prevent further wt loss. Lab / Micro Data Result Diagrams: 09/22/21 06:36 09/22/21 06:36 Labs: Laboratory Results - last 24 hr 09/21/21 14:25: Magnesium 2.5 09/21/21 21:10: Sodium 132 L, Potassium 2.9 L, Chloride 100, Carbon Dioxide 25.0, Anion Gap 7, BUN 13, Creatinine 1.01, Estim Creat Clear Calc 80.77, Est GFR (MDRD) Af Amer 96, Est GFR (MDRD) Non-Af 79, BUN/Creatinine Ratio 12.9, Glucose 151 H, Calcium 8.7, C-React Prot Ext Range 121.00 H 09/22/21 06:36: WBC 6.8, RBC 4.33 L, Hgb 12.9 L, Hct 38.2 L, MCV 88.2, MCH 29.8, MCHC 33.8, RDW Std Deviation 42.0, RDW Coeff of Judy 12.9, Plt Count 337, MPV 9.6, Neut % (Auto) Not Reportable, Absolute Neuts (auto) 5.5, Absolute Lymphs (auto) 0.75 L, Total Counted 100, Neutrophils % (Manual) 79 H, Band Neutrophils % 2, Lymphocytes % (Manual) 11 L, Monocytes % (Manual) 8 09/22/21 06:36: Sodium 134 L, Potassium 3.4 L, Chloride 102, Carbon Dioxide 26.0, Anion Gap 6, BUN 14, Creatinine 0.88, Estim Creat Clear Calc 92.70, Est GFR (MDRD) Af Amer 112, Est GFR (MDRD) Non-Af 93, BUN/Creatinine Ratio 15.9, Glucose 153 H, Calcium 8.8, Magnesium 2.6, Total Bilirubin 0.80, AST 85 H, ALT 112 H, Alkaline Phosphatase 200 H, Total Protein 7.2, Albumin 2.5 L, Globulin 4.7 H, Albumin/Globulin Ratio 0.5 L Micro: Microbiology 09/22/21 00:31 Sputum, Expectorated/Coughed Gram Stain - Final 09/21/21 22:55 Urine, Random Legionella Antigen - Final 09/21/21 22:55 Urine, Random Streptococcus pneumoniae Antigen (M - Final Physical Exam Narrative Physical exam: General: Alert, Oriented x3, Cooperative, No apparent distress, Well developed, on 4 L of oxygen HEENT: Atraumatic Oral: Moist Mucosa Neck: Supple Lungs: Diminished to auscultation Cardiovascular: HS I+II, regular, no murmurs Abdomen: Bowel Sounds Present, Soft, Non Tender Extremities: Bilateral leg edema +1 Const alert, oriented x3, no apparent distress and healthy appearing General Appearance: cooperative, well kempt and well developed Orientation / Consciousness: awake, oriented to person, oriented to place and oriented to time HEENT normocephalic and moist oral mucous membranes Eyes PERRL, EOMs intact bilaterally and conjunctivae normal Neck nuchal rigidity, supple, no JVD, thyroid normal and no carotid bruits General: trachea midline Resp normal respiratory effort and clear to auscultation bilaterally Auscultation: Negative for rales, rhonchi or wheezes Cardio regular rate, regular rhythm, no murmurs, no rub and no gallops GI normal to inspection, nondistended, normoactive bowel sounds, soft to palpation, non-tender and non-distended Extremity no clubbing, cyanosis or edema Skin no rashes or lesions noted General Skin Exam: no breakdown Neuro oriented x3, CN's II-XII intact bilaterally, no focal motor deficits and no sensory deficits noted Sensorium / Orientation: awake and alert Speech: speech normal Psych affect normal Assessment & Plan Assessment/Plan (1) Pneumonia due to COVID-19 virus: (2) Acute respiratory failure with hypoxia: (3) Hyponatremia: (4) Hypokalemia: PLAN: Assessment: #1 COVID-19 pneumonia-patient will continue on IV dexamethasone, pulse ox will be monitored #2 acute hypoxic respiratory failure secondary to COVID-19 pneumonia-patient's pulse ox will be monitored, continue IV dexamethasone #3 hypokalemia-patient was given oral potassium supplementation #4 hypothyroidism-patient is on Synthroid #5 essential hypertension-patient is on losartan #6 chronic anxiety-patient is on BuSpar Charges/Coding Visit Charges Inpatient E&M: 81768 Subs Hosp L2
[2021-09-23 03:55] VITALS: PULSE 59
[2021-09-23] MEDS: busPIRone 5 MG Tablet PO ×2 (06:22→13:15)
[2021-09-23 06:26] VITALS: BP 129/74; PULSE 73; RESP 18; TEMP 36.9; O2SAT 93
[2021-09-23 09:47] VITALS: BP 150/73; PULSE 80; RESP 18; TEMP 36.2; O2SAT 94
[2021-09-23 09:51] VITALS: O2SAT 86; O2SAT 90; O2SAT 94
[2021-09-23] MEDS: dexAMETHasone 10 MG/ML Vial 6 MG IV (09:59)
[2021-09-23] MEDS: 0.9% Saline Lock 10 ML Syringe IV (09:59)
[2021-09-23] MEDS: Levothyroxine 137 MCG Tablet PO (09:59)
[2021-09-23] MEDS: Losartan Potassium 25 MG Tablet PO (09:59)
[2021-09-23] MEDS: Enoxaparin 30 MG/0.3 ML Syringe SC (09:59)
--- NOTE | 2021-09-23 10:04 | CASEMGMT ---
Social Work Note Per admissions dean questions, pt has completed HCPOA but not LW. NAYELI uW Aller in to speak with pt yesterday regarding advanced directives. Pt completed HCPOA, denied wanting to complete LW. Since pt is COVID, original was left in pt's room. Sari Hastings PRESCHOOL ASSOCIATE TEACHER, VISION REHABILITATION THERAPIST
--- NOTE | 2021-09-23 11:54 | CASEMGMT ---
Addendum entered by Kely Bell 09/23/21 13:27: Taxi set up for 2p and pt then states he has transportation home. Taxi cancelled. Addendum entered by Kely Bell 09/23/21 13:23: [place] to call for taxi for pt. Addendum entered by Kely Bell 09/23/21 13:01: MOHAMUD ATKINS made aware pt does not have transportation home. TC to [facility] transportation, they are full for today. MOHAMUD ATKINS in to pt room. He is aware that [facility] can take him home but there is a $60 fee for cleaning d/t covid. He is agreeable to this. He states that he needs to go to the [facility] prior to leaving. Notified pt nurse of this. Original Note: MOHAMUD ATKINS made aware per hospitalist that pt does not want home O2. Pt qualifies for 3L with exertion. MOHAMUD ATKINS into pt room. Pt states he will not have oxygen in his home. He states he does not want the responsibility of it. Made pt aware that the concentrator sits in the room and he has tubing. He still declines. He does have a pox at home and states he will monitor his pox. He states he will sit down if he gets tired or sob. Pt denies any further homegoing needs. Notified hospitalist, plan to dc today.
--- NOTE | 2021-09-23 11:54 | PCM.DC ---
Discharge Instructions Diet Discharge Diet: No restrictions Activity Discharge Activity: Return to Normal Activity Return to work on:: 09/29/21 Follow Up Care Test Results: Test results from this visit will be discussed in further detail at your follow-up appointment, if applicable. Discharge Plan Admission Admit Date/Time: 09/21/21 17:42 Primary Reason for Your Visit: COVID-19 Attending Provider: Kang Cho Primary Care Provider: Care Physician,No Primary Instructions Additional Instructions / Restrictions: Return to hospital if your pulse ox is consistently below 88% Discharge Orders/Prescriptions Prescriptions: New dexamethasone 2 mg tablet 6 mg PO DAILY Qty: 24 RF: 0 potassium chloride 10 mEq tablet extended release 20 meq PO DAILY Qty: 60 RF: 0 Continued buspirone 5 mg tablet 5 mg PO TID RF: 0 levothyroxine 137 mcg tablet 137 mcg PO DAILY RF: 0 losartan 25 mg tablet 25 mg PO DAILY RF: 0 hydrochlorothiazide 25 mg tablet 25 mg PO DAILY RF: 0 cholecalciferol (vitamin D3) 1,250 mcg (50,000 unit) capsule 50,000 unit PO CASTRO RF: 0 calcium carbonate 500 mg calcium (1,250 mg) Tablet,Chewable 500 mg PO PRN PRN (Reason: heart burn) RF: 0 Referrals / Follow Up: Care Physician,No Primary [Primary Care Provider] - See Referral Note (in two weeks) Disposition Disposition (needs filled in before D/C Order can be placed): Home, Self Care
--- NOTE | 2021-09-23 12:08 | DS.PCM_ITS ---
Providers Date of Admission: 09/21/21 Date of Discharge: 09/23/21 Primary Care Physician: No Primary Care Phys Reason For Visit: RESPIRATORY FAILURE/COVID Diagnosis Discharge Diagnosis (1) Pneumonia due to COVID-19 virus: Status: Acute Code(s): U07.1 - COVID-19; J12.82 - Pneumonia due to coronavirus disease 2019 (2) Acute respiratory failure with hypoxia: Status: Acute Code(s): J96.01 - Acute respiratory failure with hypoxia (3) Hyponatremia: Status: Acute Code(s): E87.1 - Hypo-osmolality and hyponatremia (4) Hypokalemia: Status: Acute Code(s): E87.6 - Hypokalemia Plan: Final diagnosis: #1 COVID-19 pneumonia #2 acute hypoxic respiratory failure secondary to COVID-19 pneumonia #3 hypokalemia #4 hypothyroidism #5 essential hypertension #6 chronic anxiety #7 severe protein and caloric malnutrition in the context of acute illness related to inadequate oral intake as evidenced by approximately 6% weight loss in less than 1 month n.p.o. intake meeting less than 50% of estimated nutritional needs-patient was continued on a cardiac diet, Ensure Enlive 240 cc twice daily with breakfast and dinner was added. Medications at Discharge Home Medications buspirone 5 mg PO TID 05/30/21 calcium carbonate 500 mg PO PRN PRN 09/21/21 cholecalciferol (vitamin D3) 50,000 unit PO CASTRO 09/21/21 hydrochlorothiazide 25 mg PO DAILY 09/21/21 levothyroxine 137 mcg PO DAILY 09/21/21 losartan 25 mg PO DAILY 09/21/21 dexamethasone 6 mg PO DAILY #24 tab 09/23/21 potassium chloride 20 meq PO DAILY #60 tab 09/23/21 Hospital Course Operations None Procedures None Summary of Care Provided Minutes Spent on Discharge: 33 Hospital Course: This 61-year-old white male presented to the emergency room at [facility] with chief complaint of dyspnea, patient had COVID for approximately 12 days, he stated that he had become progressively more short of breath. Work-up in the emergency room included a chest x-ray which showed bilateral pulmonary infiltrates, CBC was unremarkable, potassium was 2.8, patient had elevation of his liver enzymes. CT of the chest was obtained and showed groundglass opacities consistent with COVID-19 pneumonitis, no evidence of pulmonary embolism was noted. Patient was admitted to [facility], he was placed on IV dexamethasone, he was not a candidate to receive remdesivir. Potassium supplementation was given to address his hypokalemia. Patient improved during his hospital stay, at the time of discharge, on room air his pulse ox was 90%, on room air ambulating his pulse ox was 86%. Patient refused supplemental oxygen be placed in his home, he did not want anybody to come to his house. Patient was not visibly short of breath on ambulation. On 09/23/2021, patient was seen and examined: On examination he appeared in good health and spirits. Vital signs as documented. Skin warm and dry and without overt rashes. Neck without JVD, neck was supple, trachea midline, thyroid was normal. Lungs clear bilaterally, normal air movement was noted. Heart exam notable for regular rhythm, normal sounds and absence of murmurs, rubs or gallops. Abdomen unremarkable and without evidence of organomegaly, masses, or abdominal aortic enlargement. Bowel sounds are present, abdomen is not distended. Extremities nonedematous, no cyanosis was noted, no clubbing was noted. Neuro: Cranial nerves II through XII are grossly intact, no focal motor deficits were noted, sensation to light touch and pinprick intact, motor exam 5/5 throughout. Psych: Patient is alert and oriented x3, he does not appear anxious or depressed, he does not appear agitated. Patient appears stable for discharge on 09/23/2021, again patient was aware that he qualify for oxygen on ambulation but did not want oxygen set up at his home. Patient understood the risk of this decision. Patient was discharged home on 09/23/2021. Medical Records Data Medical Nutrition Assessment Dietitian: Malnutrition Criteria Met Start: 09/22/21 16:29 Freq: Status: Active Protocol: Document 09/22/21 16:30 RMA (Rec: 09/22/21 16:31 RMA [id number]) Nutrition Malnutrition Evidence of Malnutrition Exists Yes Malnutrition (severe): Acute Illness/Injury Evidenced By Suboptimal Energy Intake ( Severe),Weight Loss (Severe) Clinical Problem Acute Disease or Injury Related Malnutrition Etiology Severe protein-calorie malnutrition in the context of acute illness related to inadequate oral intake Signs/Symptoms as evidenced by ~6% wt loss in less than 1 month and PO meeting less than 50% estimated nutrition needs Status Active Problem Recommendation Dietitian Recommendations/Changes Continue cardiac diet as ordered. Will add 240ml ensure enlive BID with breakfast and dinner meals. Adjust ONS as needed to optimize oral intake and prevent further wt loss. Weight / BMI Weight Weight: 115.1 kg Body Mass Index (BMI) 35.4 ABG / Lab / Microbiology Data Result Diagrams: 09/22/21 06:36 09/22/21 06:36 Microbiology: Microbiology 09/22/21 00:31 Sputum, Expectorated/Coughed Gram Stain - Final 09/22/21 00:31 Sputum, Expectorated/Coughed Respiratory Culture - Preliminary Appears to be normal respiratory dia. Further studies to follow. 09/21/21 22:55 Urine, Random Legionella Antigen - Final 09/21/21 22:55 Urine, Random Streptococcus pneumoniae Antigen (M - Final D/C Instructions Discharge Diet: No restrictions Return to work on: 09/29/21 Meaningful Use Info Meaningful Use Diagnoses (Choose all that apply): None applicable Discharge Plan Admission Admit Date/Time: 09/21/21 17:42 Primary Reason for Your Visit: COVID-19 Attending Provider: Kang Cho Primary Care Provider: Ignacio Walker Instructions Additional Instructions / Restrictions: Return to hospital if your pulse ox is consistently below 88% Discharge Orders/Prescriptions Prescriptions: New dexamethasone 2 mg tablet 6 mg PO DAILY Qty: 24 RF: 0 potassium chloride 10 mEq tablet extended release 20 meq PO DAILY Qty: 60 RF: 0 Continued buspirone 5 mg tablet 5 mg PO TID RF: 0 levothyroxine 137 mcg tablet 137 mcg PO DAILY RF: 0 losartan 25 mg tablet 25 mg PO DAILY RF: 0 hydrochlorothiazide 25 mg tablet 25 mg PO DAILY RF: 0 cholecalciferol (vitamin D3) 1,250 mcg (50,000 unit) capsule 50,000 unit PO CASTRO RF: 0 calcium carbonate 500 mg calcium (1,250 mg) Tablet,Chewable 500 mg PO PRN PRN (Reason: heart burn) RF: 0 Referrals / Follow Up: Care Physician,No Primary [NON-STAFF] - See Referral Note (in two weeks) Disposition Disposition (needs filled in before D/C Order can be placed): Home, Self Care Charges/Coding Visit Charges Inpatient E&M: 10629 Disch Hosp
[2021-09-23 13:11] VITALS: BP 146/82; PULSE 88; RESP 18; TEMP 36.2; O2SAT 90
== END 2021-09-23 14:45 | disposition home or self-care (01) | DRG 177 ==
LOC: ED 14:45 → MS3 18:03
PROVIDERS: Admitting Provider Internal Medicine; Emergency Provider Student in an Organized Health Care Education/Training Program; PCP Family Medicine; Visit Provider Internal Medicine
DX: U07.1 COVID-19 (principal); J12.82 Pneumonia due to coronavirus disease 2019; J96.01 Acute respiratory failure with hypoxia; E43 Unspecified severe protein-calorie malnutrition; E87.1 Hypo-osmolality and hyponatremia; E87.6 Hypokalemia; I10 Essential (primary) hypertension; E78.00 Pure hypercholesterolemia, unspecified; E03.9 Hypothyroidism, unspecified; F41.9 Anxiety disorder, unspecified; Z87.891 Personal history of nicotine dependence; Z79.899 Other long term (current) drug therapy; Z79.890 Hormone replacement therapy; Z68.35 Body mass index [BMI] 35.0-35.9, adult
CPT/HCPCS: 36415; 71045; 71275; 80048; 80053; 83735; 84484; 85025; 86140; 87070; 87205; 87449; 93005; 97802; 99285; J7040; Q9967; A4216

== ENCOUNTER 2024-02-04 12:47 | Emergency (ER) | payer OTHER, SELFPAY ==
[2024-02-04 12:48] VITALS: BP 188/101; PULSE 124; RESP 18; TEMP 36.6; O2SAT 92; BMI 37.9
--- NOTE | 2024-02-04 13:04 | RAD_ITS ---
INDICATION: hypertension. Feels like heart is racing. -- At work had dizzy spell while; but i get dizzy when i need to poop and it it went away after i pooped like usual but blood pressure didn''t come down so nurse made me come in;. -- did not take bp meds this am prescribed bid EXAMINATION/TECHNIQUE: X-RAY - XR Chest 1 View COMPARISON: September 21, 2021 FINDINGS: LINES/DEVICES: None. LUNGS: No consolidation, edema or effusion. No pneumothorax. MEDIASTINUM AND CARDIOVASCULAR STRUCTURES: Cardiac silhouette not enlarged. Central airways and mediastinal contour are unremarkable. BONES AND SOFT TISSUES: Unremarkable. RAD/Chest 1 View (Portable) IMPRESSION: No radiographic evidence of acute cardiopulmonary disease. Electronically Signed: Dominga Russell MD at 14:01 EDT ,
--- NOTE | 2024-02-04 13:05 | EKG12_ITS ---
Test Reason : PALPS Blood Pressure : / mmHG Vent. Rate : 121 BPM Atrial Rate : 121 BPM P-R Int : 172 ms QRS Dur : 088 ms QT Int : 310 ms P-R-T Axes : 040 -01 044 degrees QTc Int : 440 ms Sinus tachycardia Inferior infarct , age undetermined Possible Anterior infarct , age undetermined Abnormal ECG Confirmed by JOCELYN FLORES, ESTRELLITA ([id number]), tape editor MATT PURVIS ([id number]) on 02/06/2024 9:50:50 AM Referred By: NING Confirmed By:IJEOMA BANKS MD
--- NOTE | 2024-02-04 13:06 | EDS_ITS ---
HPI History of Present Illness Chief Complaint: Palpitations Narrative Narrative: 64-year-old male past medical history of hypertension, hypothyroidism, presents with dizziness that had resolved, anxiety, and elevated blood pressure. 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 No chest pain or shortness of breath. He states that usually when he gets dizzy, he has to defecate. He was able to do so, but felt little anxious. While his dizziness resolved, he did take his BuSpar which improved his anxiety as well. Currently, he states he feels fine, however when they took his blood pressure, it was 219/98. He states he is here mainly because of the blood pressure. [facility] Medical History Pneumonia due to COVID-19 virus Former smoker High cholesterol Anxiety Hypothyroidism Hypertension Home Medications ?Medication ?Instructions ?Recorded ?Last Taken ?Type buspirone 5 mg tablet 5 mg PO TID anxiety 05/30/21 Unknown History calcium carbonate 500 mg PO PRN PRN heart burn 09/21/21 Unknown History cholecalciferol (vitamin D3) 1,250 50,000 unit PO CASTRO supplement 09/21/21 09/13/21 History mcg (50,000 unit) capsule hydrochlorothiazide 25 mg tablet 25 mg PO DAILY blood pressure 09/21/21 09/21/21 History levothyroxine 137 mcg tablet 137 mcg PO DAILY hypothyroidism 09/21/21 09/21/21 History losartan 25 mg tablet 25 mg PO DAILY blood pressure 09/21/21 09/21/21 History dexamethasone 2 mg tablet 6 mg (3 x 2 mg) PO DAILY #24 tabs 09/23/21 Unknown Rx potassium chloride 10 mEq 20 meq (2 x 10 mEq) PO DAILY #60 09/23/21 Unknown Rx tablet,extended release tabs Allergy/AdvReac Type Severity Reaction Status Date / Time meperidine (From Demerol) Allergy Nausea/Vom/ Verified 02/04/24 12:48 Diarrhea Family History Mother No problems noted. Surgical History History of cholecystectomy Social History housing: house Smoking Status: Former smoker alcohol intake: never substance use type: does not use ROS ROS ED ROS Narrative Constitutional: No fever, no chills. HEENT: No sore throat. No neck pain. No loss of vision. No rhinorrhea. Cardiovascular: No chest pain. Questionable palpitations. No pedal edema. Respiratory: No cough, no shortness of breath. Abdominal: No abdominal pain. No nausea. No vomiting. Genitourinary: No dysuria. No hematuria. Musculoskeletal: No myalgias. No arthralgias. Neurologic: No headaches. Positive vertigo/dizziness-resolved. No lightheadedness. Skin: No rash. No change in color. Psychiatric: No depression. No anxiety. EXAM Physical Exam Narrative Exam Narrative: Afebrile. Vital signs noted. HEENT: Normocephalic. Atraumatic. PERRL, EOMI. Neck soft and supple. No point tenderness or step off. Cardiovascular: Positive regular tachycardia no murmurs, rubs, or gallops appreciated. Respiratory: No tachypnea. Lungs clear to auscultation bilaterally. Gastrointestinal: Abdomen soft, nontender, with normoactive bowel sounds. No rebound or guarding. Neurological: Awake. Alert. Oriented. Nonfocal, nonlateralizing. Skin: No rash. Normal color. No pallor. Musculoskeletal: No pedal edema. Full range of motion extremities. Const Vital Signs: 02/04/24 12:48 02/04/24 12:48 02/04/24 12:48 Temperature 97.8 F Temperature Source Temporal Pulse Rate 124 H Respiratory Rate 18 Respiratory Effort Normal Non-Labored Normal Non-Labored Respiratory Pattern Normal Blood Pressure 188/101 H Blood Pressure Mean 130 Pulse Ox 92 Oxygen Delivery Method Room Air MDM MDM MDM Narrative Medical decision making narrative: Concern is for hypertensive emergency versus hypertensive urgency. Given his tachycardia, and a pulse ox of 93% on room air, pulmonary embolism is also in the differential. His systolic blood pressure did climb above 200 although initially it was 188. EKG was obtained and interpreted by myself independently as sinus tachycardia at [address] changes or major ectopy. D- dimer will be obtained as well as chest x-ray. He will be given hydralazine 10 mg intravenously for better blood pressure control. I reviewed his medication list and he does take losartan 25 mg and hydrochlorothiazide 25 mg. I reviewed his laboratory work and he has normal white count of 10.4, hemoglobin normal at 15.4, platelet count normal at 343. Electrolyte panel is significant for chloride of 108, slightly elevated which I think is nonspecific, normal BUN of 12 and normal creatinine of 1.15. Glucose is elevated at 155 with a normal anion gap of 10 so I doubt any diabetic ketoacidosis. LFTs are grossly unremarkable. High-sensitivity troponin is less than 3. I do not feel he requires serial enzymes. He is not having any chest pain. His D-dimer is at the cutoff for age as he is 64 years old and is 0.65. Given that his tachycardia was present in the 120s and he was 92% on room air, CTA of the chest will be obtained to rule out pulmonary embolism. Chest x-ray in 1 view had already been obtained and interpreted by myself independently which shows no evidence of pneumothorax or a consolidation. I do not feel antibiotics are indicated. I reviewed the radiology report which confirms my independent interpretation. I reviewed the radiology report of the CTA which shows no evidence of pulmonary embolism or dissection. After hydralazine, his blood pressures come down to 188/101, and he remains asymptomatic with this. He did tell me that he had been increased on his hydrochlorothiazide to 50 mg, but he breaks it in half and takes half in the morning and half in the evening. At this point in time, I do feel he can be discharged to follow-up with his primary care provider as he is asymptomatic with his blood pressure. He was told to keep a log of this and that he needs tighter control of his blood pressure. I do not feel he requires observation or admission at this time. Return instructions to the emergency department were reviewed. Patient is agreeable to the plan. Disposition is discharged home in stable condition. History & Record Review Discussion w/independent historian: Patient and Family Additional record(s) reviewed:: Prior labs Lab Data Attestation: I reviewed the patient's lab results. Labs: Laboratory Results - last 24 hr 02/04/24 13:00 WBC 10.4 RBC 5.00 Hgb 15.4 Hct 45.3 MCV 90.6 MCH 30.8 MCHC 34.0 RDW Std Deviation 41.7 RDW Coeff of Judy 12.7 Plt Count 343 MPV 9.6 Immature Gran % (Auto) 0.400 Neut % (Auto) 63.1 Lymph % (Auto) 27.0 [place] % (Auto) 6.1 Eos % (Auto) 2.3 Baso % (Auto) 1.1 H Absolute Neuts (auto) 6.6 Absolute Lymphs (auto) 2.81 Nucleated RBC % 0 D-Dimer Quant (PE/DVT) 0.65 H* Sodium 140 Potassium 3.5 Chloride 108 H Carbon Dioxide 22.0 Anion Gap 10 BUN 12 Creatinine 1.12 Estim Creat Clear Calc 87.92 Est GFR (MDRD) Af Amer 85 Est GFR (MDRD) Non-Af 70 BUN/Creatinine Ratio 10.7 Glucose 155 H Calcium 9.4 Total Bilirubin 0.40 AST 37 ALT 49 Alkaline Phosphatase 108 Troponin I High Sens < 3 L Total Protein 7.8 Albumin 3.8 Globulin 4.0 Albumin/Globulin Ratio 1.0 Radiography Chest X-Ray - ED: 1 View, Read by ED Physician and Read by Radiologist Diagnostic Testing: Clinical Impression(s) from Imaging Studies Chest X-Ray 02/04/24 13:04 IMPRESSION: No radiographic evidence of acute cardiopulmonary disease. Electronically Signed: Dominga Russell MD at 14:01 EDT , Chest CTA 02/04/24 13:47 IMPRESSION: No demonstrated pulmonary embolism or arterial dissection. No acute cardiopulmonary process. Atherosclerosis. Electronically Signed: Dominga Russell MD at 14:29 EDT , Discharge Plan Triage Chief Complaint: Palpitations Other Complaint: Hypertension ED Provider: Daniele Flores Dx/Rx/DC Orders Clinical Impression: Uncontrolled hypertension, Tachycardia Instructions: ED High Blood Pressure Hypertension, ED Palpitations Prescriptions: No Action buspirone 5 mg tablet 5 mg PO TID Patient Comments: TAKE 3 TABLETS BY MOUTH TWICE A DAY levothyroxine 137 mcg tablet 137 mcg PO DAILY losartan 25 mg tablet 25 mg PO DAILY hydrochlorothiazide 25 mg tablet 25 mg PO DAILY cholecalciferol (vitamin D3) 1,250 mcg (50,000 unit) capsule 50,000 unit PO CASTRO calcium carbonate 500 mg calcium (1,250 mg) Tablet,Chewable 500 mg PO PRN PRN (Reason: heart burn) dexamethasone 2 mg tablet 6 mg PO DAILY Qty: 24 0RF potassium chloride 10 mEq tablet extended release 20 meq PO DAILY Qty: 60 0RF Stand Alone Forms: ED Work / School Excuse Primary Care Provider: Ignacio Walker Referrals: Ignacio Walker MD [Primary Care Provider] - 3-5 Days Activity Restrictions/Additional Instructions: Keep a log of your blood pressures for your primary care provider. You should take your antihypertensives as previously directed. Return with chest pain, headaches, new or worsening symptoms. Print Language: Thai Disposition Disposition: Home, Self Care
[2024-02-04] MEDS: hydrALAZINE 20 MG/ML Vial 10 MG IV (13:10)
[2024-02-04 13:20] LABS: Absolute Lymphocyte Count 2.81 X10^3/uL (0.83-4.51); Absolute Neutrophil Count 6.6 X10^3/uL (2.0-7.7); Basophil# 0.11 X10^3/uL; Basophil% 1.1 % (0-1); Eosinophil# 0.24 X10^3/uL; Eosinophils% 2.3 % (0-5); Hematocrit 45.3 % (40-54); Hemoglobin 15.4 g/dL (13.0-16.5); Lymphocyte # 2.81 X10^3/ul (0.83-4.51); Mean Corpuscular Hgb 30.8 pg (27.0-32.0); Mean Corpuscular Volume 90.6 fL (80-94); Mean Platelet Vol. 9.6 fl (6.2-12.0); Monocyte# 0.63 X10^3/uL; Monocyte% 6.1 % (0-10); NRBC Flagged by Analyzer 0 % (0-5); Neutrophil # 6.58 X10^3/uL (2.7-7.7); Neutrophil % 63.1 % (47-70); Platelet Count 343 K/mm3 (150-450); RBC Distribution Width CV 12.7 % (11.6-14.6); RBC Distribution Width SD 41.7 fl (35.1-43.9); White Blood Count 10.4 K/mm3 (4.4-11.0)
[2024-02-04 13:33] LABS: AST(SGOT) 37 U/L (15-37); Alanine Aminotransfer ALT/SGPT 49 U/L (16-61); Albumin, Serum 3.8 g/dL (3.2-5.0); Alkaline Phosphatase 108 U/L (45-117); Anion Gap 10 (5-15); BUN 12 mg/dL (7-18); BUN/Creat Ratio 10.7 RATIO (10-20); Calcium,Total 9.4 mg/dL (8.5-10.1); Chloride 108 mmol/L (98-107); Creatinine, Serum 1.12 mg/dL (0.70-1.30); EST Glomerular Filtration Rate 70 mL/min (>60); Est Glom Filt Rate - Afr Amer 85 mL/min (>60); Estimated Creatinine Clearance 87.92 ml/min; Glucose 155 mg/dL (74-106); Potassium 3.5 mmol/L (3.5-5.1); Protein, Total 7.8 g/dL (6.4-8.2); Sodium Level 140 mmol/L (136-145); Troponin-I HS (w/2H Reflex) < 3 pg/mL (3.0-78.0)
[2024-02-04 13:38] LABS: D-Dimer Quantitative (DVT/PE) 0.65 FEU/ug/m (0.27-0.49)
--- NOTE | 2024-02-04 13:47 | CT_ITS ---
STUDY: CTA CHEST REASON FOR EXAM: Male, 64 years old. Elevated D dimer RADIATION DOSAGE (If Supplied By Facility): CTDIvol = ( 13.83 ) mGy, DLP = ( 616.72 ) mGycm TECHNIQUE: The examination was performed with the intravenous administration of IV 100mL Isovue-370. Post-processing of the angiographic images was performed, with multiplanar reformation and 3D reconstruction. The protocol utilizes one or more of the following dose reduction techniques: automated exposure control, adjustment of mA and/or kV according to patient size,and/or use of iterative reconstruction technique. COMPARISON: September 21, 2021 FINDINGS: Motion artifact degrades anatomic detail Normal enhancement of the main pulmonary artery and right and left pulmonary arteries. Normal enhancement of the bilateral peripheral pulmonary arteries. There is no demonstrated pulmonary embolism. There is atherosclerotic calcification of the aortic arch and descending thoracic aorta. There is no demonstrated aortic dissection. There are calcifications of the coronary arteries. Normal mediastinum. Normal hilar regions. Normal visualized trachea and bronchi. The lungs are well expanded. Normal pulmonary parenchyma. Normal pleura. Normal chest wall structures. Normal osseous structures. Normal visualized upper abdomen. CT/CTA Chest W/WO Contrast IMPRESSION: No demonstrated pulmonary embolism or arterial dissection. No acute cardiopulmonary process. Atherosclerosis. Electronically Signed: Dominga Russell MD at 14:29 EDT ,
[2024-02-04 14:43] VITALS: BP 194/84; PULSE 101; RESP 18; TEMP 36.2; O2SAT 94
[2024-02-04 14:48] VITALS: BP 194/84; PULSE 103; RESP 18; O2SAT 98
[2024-02-04 15:11] LABS: Reflex Troponin-HS? (from REC) Y
== END 2024-02-04 14:53 | disposition home or self-care (01) ==
PROVIDERS: Emergency Provider Emergency Medicine; PCP Family Medicine; Visit Provider Emergency Medicine
DX: I10 Essential (primary) hypertension (principal); R00.0 Tachycardia, unspecified; Z87.891 Personal history of nicotine dependence; Z86.16 Personal history of COVID-19
CPT/HCPCS: 71045; 71275; 80053; 84484; 85025; 85379; 93005; 96374; 99285; A4216

== ENCOUNTER 2024-03-26 08:06 | Emergency (ER) | payer OTHER, SELFPAY ==
[2024-03-26 08:06] VITALS: BP 173/96; PULSE 107; RESP 20; TEMP 36.3; O2SAT 93; BMI 37.3
--- NOTE | 2024-03-26 08:16 | EKG12_ITS ---
Test Reason : DIZZINESS Blood Pressure : / mmHG Vent. Rate : 091 BPM Atrial Rate : 091 BPM P-R Int : 178 ms QRS Dur : 094 ms QT Int : 358 ms P-R-T Axes : 025 -03 027 degrees QTc Int : 440 ms Normal sinus rhythm Inferior infarct , age undetermined Abnormal ECG Confirmed by Kolton Garcia ([id number]), publishing editor MATT PURVIS ([id number]) on 03/27/2024 1:19:21 PM Referred By: Confirmed By:Kolton Garcia
--- NOTE | 2024-03-26 08:17 | EX.ED.DYSGE1 ---
HPI History of Present Illness Chief Complaint: Dizziness Informant: patient Onset/Context/Timing Onset: Days Context: Gradual Onset Timing: Continuous Current Severity: Mild Maximum Severity: Moderate Narrative Narrative: 64-year-old male history of hypertension and hypothyroidism. Complaining of room spinning dizziness since Tuesday. Worse with head movement. Denies any headache. No head trauma. No history of stroke or mini stroke. No weakness or numbness to his arms or legs. No visual change. No speech change. Says he is off balance when he walks. He has had associated nausea and vomiting. Prior similar symptoms: No Recent Illness/Hospitalization: No [facility] Medical History Pneumonia due to COVID-19 virus Former smoker High cholesterol Anxiety Hypothyroidism Hypertension Home Medications ?Medication ?Instructions ?Recorded ?Last Taken ?Type buspirone 5 mg tablet 5 mg PO TID anxiety 05/30/21 Unknown History calcium carbonate 500 mg PO PRN PRN heart burn 09/21/21 Unknown History cholecalciferol (vitamin D3) 1,250 50,000 unit PO CASTRO supplement 09/21/21 09/13/21 History mcg (50,000 unit) capsule hydrochlorothiazide 25 mg tablet 25 mg PO DAILY blood pressure 09/21/21 09/21/21 History levothyroxine 137 mcg tablet 137 mcg PO DAILY hypothyroidism 09/21/21 09/21/21 History losartan 25 mg tablet 25 mg PO DAILY blood pressure 09/21/21 09/21/21 History dexamethasone 2 mg tablet 6 mg (3 x 2 mg) PO DAILY #24 tabs 09/23/21 Unknown Rx potassium chloride 10 mEq 20 meq (2 x 10 mEq) PO DAILY #60 09/23/21 Unknown Rx tablet,extended release tabs meclizine 25 mg chewable tablet 25 mg PO TID #20 tabs 03/26/24 Unknown Rx (Antivert) Allergy/AdvReac Type Severity Reaction Status Date / Time meperidine (From Demerol) Allergy Nausea/Vom/ Verified 02/04/24 12:48 Diarrhea Family History Mother No problems noted. Surgical History History of cholecystectomy Social History housing: house Smoking Status: Former smoker alcohol intake: never substance use type: does not use ROS ROS ED ROS Narrative Room spinning dizziness. Nausea and vomiting. Constitutional Constitutional ED: Denies chills or fever(s) Eyes Eyes: Denies blurry vision ENT ENT ED: Denies ear pain Cardiovascular Cardiovascular: Denies chest pain Respiratory/Chest Respiratory/Chest: Denies cough or dyspnea Gastrointestinal Gastrointestinal: Reports nausea and vomiting; Denies abdominal pain, constipation, diarrhea or melena Genitourinary Genitourinary ED: Denies dysuria or hematuria Musculoskeletal Musculoskeletal: Denies arthralgias Integumentary Denies abscess Neurologic Neurologic: Denies headache(s) Psychiatric Psychiatric: Denies anxiety Endocrine Endocrinology: Denies cold intolerance Hematologic/Lymphatic Hematologic/Lymphatic: Reports none Allergic/Immunologic Allergic/Immunologic ED: Denies mouth swelling or tongue swelling EXAM Physical Exam Narrative Exam Narrative: 64-year-old male sitting upright in chair. Vital signs are stable he is afebrile. He does not look septic or toxic. He is in no distress. H EENT exam unremarkable. TMs normal. No facial droop. Pupils are round reactive light. Extra motions are intact. No facial droop. Normal speech. No trauma. Neck nontender. No lymphadenopathy. Lungs are to auscultation bilaterally. Heart tachycardic rate of 105 no murmur. Chest wall and ribs nontender. Abdomen soft nontender. Back nontender. Moving all 4 extremities. Nontender no edema. 5 out of 5 private watchman strength. Dorsi plantarflexion intact. Neurologic exam normal. NIH 0. Positive Hallpike. Const Vital Signs: 03/26/24 08:06 Temperature 97.3 F L Temperature Source Temporal Pulse Rate 107 H Respiratory Rate 20 H Blood Pressure 173/96 H Blood Pressure Mean 121 Pulse Ox 93 Oxygen Delivery Method Room Air Positive well nourished and well developed; Negative for cachectic, contractures or unkempt General Appearance ED: well developed and NAD; Negative for unkempt, cachectic, contractures, cyanotic, diaphoretic or pallor Nutritional Appearance: Negative for cachectic HEENT Reports moist mucous membranes Negative for trauma or tenderness Eyes PERRL and EOMs intact bilaterally General Eye ED: Negative for pale conjunctiva, scleral icterus or other Neck no lymphadenopathy, supple and no JVD General: Negative for tenderness Lymph Lymphatic: Negative for other Chest Wall inspection of chest normal and palpation of chest normal Chest: Negative for other Resp normal respiratory effort and clear to auscultation bilaterally Effort and Inspection: Negative for retractions Auscultation: Negative for rales, rhonchi, wheezes or diminished lung sounds Cardio regular rhythm, S1 normal heart sound, S2 normal heart sound and no murmurs; Negative for regular rate Rate: tachycardic Rhythm: Negative for abnormal rhythm GI normal to inspection, nondistended, normoactive bowel sounds, non-tender, non-distended and no masses Inspection: Negative for abdominal distention Auscultation: normoactive bowel sounds Palpation: soft; Negative for tender or guarding Back/Spine no CVA tenderness General Back: Negative for CVA tenderness Cervical Spine: Negative for cervical spine tenderness Thoracic Spine / Upper Back: Negative for thoracic spinal tenderness or paraspinal muscle tenderness Lumbar Spine / Lower Back: Negative for lumbar spinal tenderness Extremity normal to inspection General Extremety ED: Negative for edema, tenderness or other findings General Extremity: Negative for edema or other findings Neuro oriented x3 and CN's II-XII intact bilaterally Sensorium / Orientation: alert; Negative for orientation impaired, lethargic or stuporous Sensory Exam: No sensory level loss detected Motor Exam: strength 5/5 throughout; Negative for general weakness or strength abnormal Psych mental status grossly normal Appearance: Negative for unkempt Attitude: No agitated Mood & Affect: Negative for depressed, anxious or tearful Skin no rashes or lesions noted, no wounds and skin turgor normal General Skin Exam: elasticity normal; Negative for jaundice or pallor Lesions: No lesion noted Rashes: No rashes noted Trauma: Negative for abrasion Wounds: Negative for wounds noted MDM MDM MDM Narrative Medical decision making narrative: 64-year-old male with what appears to be benign positional vertigo. Neurologic exam is normal. Positive Hallpike. Screening labs and CAT scan will be obtained. He will be treated with meclizine and reassessed. Repeat exam patient is doing well at 10:20 AM. Repeat neurologic exam is normal and unchanged. Patient's labs are unremarkable. As well as a CTA of his head and neck. His NIH remains 0. He does feel somewhat better after the Antivert. He will be discharged home treated as benign positional vertigo. Follow-up with his primary care physician Dr. Walker at the [facility]. To ensure he is improving. History & Record Review Discussion w/independent historian: Patient Additional record(s) reviewed:: Prior inpatient record, Prior outpatient record, Prior ED visit and Prior labs Lab Data Attestation: I reviewed the patient's lab results. Lab results narrative: CBC normal. White count 9. H&H 15 and 44. Platelets 308. Chemistries show potassium 3.4. Gap benign. Normal BUN and creatinine of 13 and 1. Glucose 111. Labs: Laboratory Results - last 24 hr 03/26/24 08:30 WBC 9.6 RBC 4.98 Hgb 15.2 Hct 44.9 MCV 90.2 MCH 30.5 MCHC 33.9 RDW Std Deviation 40.1 RDW Coeff of Judy 12.2 Plt Count 308 MPV 9.6 Immature Gran % (Auto) 0.400 Neut % (Auto) 61.1 Lymph % (Auto) 28.7 [place] % (Auto) 6.2 Eos % (Auto) 2.8 Baso % (Auto) 0.8 Absolute Neuts (auto) 5.9 Absolute Lymphs (auto) 2.76 Nucleated RBC % 0 Sodium 142 Potassium 3.4 L Chloride 108 H Carbon Dioxide 25.0 Anion Gap 9 BUN 13 Creatinine 1.08 Estim Creat Clear Calc 90.48 Est GFR (MDRD) Af Amer 88 Est GFR (MDRD) Non-Af 73 BUN/Creatinine Ratio 12.0 Glucose 111 H Calcium 9.4 Radiography Diagnostic Testing: Clinical Impression(s) from Imaging Studies Head/Neck CTA 03/26/24 09:07 IMPRESSION: Minimal plaque formation at the origin of the right and left internal carotid arteries. Incidental note is made of asymmetrical soft tissue prominence in the region of the left piriform sinus. Clinical correlation recommended. Electronically Signed: Yo Wright MD at 10:02 EDT , Rhythm Strip Rhythm Strip: Sinus Rhythm Rate: 91 Ectopy: None EKG Initial EKG: Attestation: I personally reviewed and interpreted this EKG as follows: Interpretation: Sinus Rhythm and No Acute Injury Pattern Comments: Normal sinus rhythm rate of 91 no acute signs of PR or ischemia. Old inferior PR. Discharge Plan Triage Chief Complaint: Dizziness ED Provider: Lauri Hernandez Dx/Rx/DC Orders Clinical Impression: Dizziness, Vertigo Instructions: ED BPV Vertigo Prescriptions: New meclizine [Antivert] 25 mg tablet,chewable 25 mg PO TID Qty: 20 0RF No Action buspirone 5 mg tablet 5 mg PO TID Patient Comments: TAKE 3 TABLETS BY MOUTH TWICE A DAY levothyroxine 137 mcg tablet 137 mcg PO DAILY losartan 25 mg tablet 25 mg PO DAILY hydrochlorothiazide 25 mg tablet 25 mg PO DAILY cholecalciferol (vitamin D3) 1,250 mcg (50,000 unit) capsule 50,000 unit PO CASTRO calcium carbonate 500 mg calcium (1,250 mg) Tablet,Chewable 500 mg PO PRN PRN (Reason: heart burn) dexamethasone 2 mg tablet 6 mg PO DAILY Qty: 24 0RF potassium chloride 10 mEq tablet extended release 20 meq PO DAILY Qty: 60 0RF Primary Care Provider: Ignacio Walker Referrals: Ignacio Walker MD [Primary Care Provider] - 3-5 Days Activity Restrictions/Additional Instructions: Plenty of fluids and rest. Off work today and tomorrow. Use the Antivert or meclizine which is a antivertigo medication 3 times a day for the next 2 days. If you are improving you can use it as needed. Follow-up with your primary care physician, Dr. Walker, later this week to ensure you are improving. If you are not sometimes he can have you follow-up with physical therapy that can do movements with your head neck to improve your vertigo. Print Language: Albanian Disposition Disposition: Home, Self Care
[2024-03-26] MEDS: Meclizine HCl 25 MG Tablet PO (08:31)
[2024-03-26 08:40] LABS: Absolute Lymphocyte Count 2.76 X10^3/uL (0.83-4.51); Absolute Neutrophil Count 5.9 X10^3/uL (2.0-7.7); Basophil# 0.08 X10^3/uL; Basophil% 0.8 % (0-1); Eosinophil# 0.27 X10^3/uL; Eosinophils% 2.8 % (0-5); Hematocrit 44.9 % (40-54); Hemoglobin 15.2 g/dL (13.0-16.5); Lymphocyte # 2.76 X10^3/ul (0.83-4.51); Lymphocyte % 28.7 % (19-41); Mean Corp Hgb Conc 33.9 g/dL (32-36); Mean Corpuscular Hgb 30.5 pg (27.0-32.0); Mean Corpuscular Volume 90.2 fL (80-94); Mean Platelet Vol. 9.6 fl (6.2-12.0); Monocyte% 6.2 % (0-10); NRBC Flagged by Analyzer 0 % (0-5); Neutrophil # 5.87 X10^3/uL (2.7-7.7); Neutrophil % 61.1 % (47-70); Platelet Count 308 K/mm3 (150-450); RBC Distribution Width CV 12.2 % (11.6-14.6); RBC Distribution Width SD 40.1 fl (35.1-43.9); Red Blood Count 4.98 M/mm3 (4.6-6.2); White Blood Count 9.6 K/mm3 (4.4-11.0)
[2024-03-26 08:55] LABS: Anion Gap 9 (5-15); BUN 13 mg/dL (7-18); Calcium,Total 9.4 mg/dL (8.5-10.1); Chloride 108 mmol/L (98-107); Creatinine, Serum 1.08 mg/dL (0.70-1.30); EST Glomerular Filtration Rate 73 mL/min (>60); Est Glom Filt Rate - Afr Amer 88 mL/min (>60); Estimated Creatinine Clearance 90.48 ml/min; Glucose 111 mg/dL (74-106); Potassium 3.4 mmol/L (3.5-5.1); Sodium Level 142 mmol/L (136-145)
--- NOTE | 2024-03-26 09:07 | CT_ITS ---
STUDY: CTA HEAD AND NECK WITH CONTRAST REASON FOR EXAM: Male, 64 years old. Dizziness since Tuesday. RADIATION DOSAGE (If Supplied By Facility): CTDIvol = ( 28.57 ) mGy, DLP = ( 1726.26 ) mGycm TECHNIQUE: CT angiography was performed with a multi-detector CT scanner. Data acquisition was obtained from the skull base through the vertex following intravenous administration of IV 100mL [id number]-[id number]. MIP images were reconstructed from the axial data set. Post-processing of the angiographic images was performed, with multiplanar reformation and 3D reconstruction. Individualized dose optimization techniques were used for this CT. COMPARISON: No relevant priors. FINDINGS: Normal bilateral petrous carotid arteries. There is calcified plaque formation of the right cavernous carotid artery, without a cross-sectional luminal stenosis. Normal left cavernous carotid artery with a normal supraclinoid bifurcation. Normal right A1 segments of the anterior cerebral artery. Normal left A1 segments of the anterior cerebral artery. Normal intact anterior communicating artery (ACOM). Normal bilateral A2 segments of the anterior cerebral arteries. Normal right M1 and M2 segments of the middle cerebral arteries, with a normal M1 bifurcation. Normal left M1 and M2 segments of the middle cerebral arteries, with a normal M1 bifurcation. Normal right posterior communicating artery (PCOM). Normal left posterior communicating artery (PCOM). Normal bilateral vertebral arteries. Normal basilar artery with a normal basilar bifurcation. The visualized bilateral superior cerebellar (SCA) arteries are normal. Normal bilateral P1, P2 and visualized P3 segments of the posterior cerebral arteries. There is no demonstrated aneurysm of the teller of [place]. There is no demonstrated abnormality of the visualized brain. AORTIC ARCH: There is atherosclerotic calcific plaque formation of the aortic arch and great vessels arising from the aortic arch, without a hemodynamically significant stenosis. There is a normal origin of the brachiocephalic, left common carotid, and left subclavian arteries. There is apparent origin of the right subclavian artery arising from the arch and coursing posterior to the esophagus. This is a normal anatomic variant. RIGHT CAROTID ARTERIES: Normal right common carotid artery (CCA). Normal right common carotid bulb. Minimal calcific plaque at the origin of the left internal carotid artery. Normal visualized cervical portion of the right internal carotid artery. Normal origin of the right external carotid artery (ECA). LEFT CAROTID ARTERIES: Normal left common carotid artery (CCA). Normal left common carotid bulb. Minimal calcific plaque at the origin of the left internal carotid artery. Normal visualized cervical portion of the left internal carotid artery. Normal origin of the left external carotid artery (ECA). VERTEBRAL ARTERIES: Normal bilateral vertebral arteries. CT/CTA Head AND Neck W/ Contrast IMPRESSION: Minimal plaque formation at the origin of the right and left internal carotid arteries. Incidental note is made of asymmetrical soft tissue prominence in the region of the left piriform sinus. Clinical correlation recommended. Electronically Signed: Yo Wright MD at 10:02 EDT ,
[2024-03-26 10:33] VITALS: BP 164/76; BP 164/79; PULSE 91; RESP 18; TEMP 36.6; O2SAT 97
== END 2024-03-26 10:34 | disposition home or self-care (01) ==
PROVIDERS: Emergency Provider Emergency Medicine; PCP Family Medicine; Visit Provider Emergency Medicine
DX: R42 Dizziness and giddiness (principal); I10 Essential (primary) hypertension; E78.00 Pure hypercholesterolemia, unspecified; R11.2 Nausea with vomiting, unspecified; E03.9 Hypothyroidism, unspecified; Z79.890 Hormone replacement therapy; Z79.899 Other long term (current) drug therapy; Z87.891 Personal history of nicotine dependence; Z90.49 Acquired absence of other specified parts of digestive tract
CPT/HCPCS: 70496; 70498; 80048; 85025; 93005; 99283; Q9967; A4216